=== PATIENT | female | born 2000 | race Caucasian/White ===

== ENCOUNTER 2025-04-07 21:20 | Emergency (ER) | payer OTHER, SELFPAY ==
[2025-04-07 21:27] VITALS: BP 126/73
[2025-04-07 21:53] LABS: Hematocrit 36.0 % (37.0-47.0); Hemoglobin 12.2 g/dL (12.0-16.0); Mean Corp Hgb Conc. 33.9 g/dL (33.0-37.0); Mean Corpuscular Volume 90.9 fL (81.0-99.0); Nucleated Red Blood Cells % 0 %; Platelet Count 286 10^3/uL (130-400); Red Cell Dist. Width 11.6 % (11.5-14.5)
[2025-04-07 21:58] LABS: HCG, Serum Qualitative Screen Negative
[2025-04-07 22:17] LABS: ALT (SGPT) 30 U/L (0-35); AST (SGOT) 15 U/L (14-36); Albumin 4.4 g/dl (3.5-5.0); Alkaline Phosphatase 76 U/L (38-126); Blood Urea Nitrogen 16 mg/dl (7-17); Calcium 9.9 mg/dl (8.4-10.2); Carbon Dioxide 27 mmol/L (22-30); Chloride 105 mmol/L (98-107); Glucose 103 mg/dl (70-99); Potassium 4.0 mmol/L (3.5-5.1); Sodium 137 mmol/L (135-145); Total Protein 7.0 g/dl (6.3-8.2); eGFR > 60.00
[2025-04-07 22:45] LABS: Urine Character Clear (Clear)
[2025-04-07 22:59] LABS: Urine Squamous Cell 21-25 /LPF (Few)
[2025-04-07 23:01] LABS: Urine Red Blood Cell 0-2 /HPF (0-2); Urine White Cell 0-2 /HPF (0-5)
--- NOTE | 2025-04-08 01:29 | ED.GENMED ---
History of Present Illness
General
Chief Complaint: Abdominal Pain
Source: patient
Time Seen by Provider: 04/08/25 01:18
History of Present Illness
History of Present Illness:
25-year-old female presents to the emergency room complaining of right lower abdominal/pelvic pain. Patient has been having this discomfort intermittently for the past couple weeks. Today the pain started and has been constant. Previously the
pain seemed to be related to lifting heavier objects. She would lift something have pain which would last for the remainder of the day but when she wakes up the next morning the pain will be gone. Today the pain started without any provocation.
It exists in her right pelvic region and extends down to her groin. She denies any palpable bulges or hernias. She denies any vomiting though she did feel bit nauseous earlier today. She does not believe there is any chance she is . She
denies any abnormal vaginal discharge. She did have some constipation earlier today but was ultimately able to have a bowel movement. No previous abdominal surgeries. Last menstrual period was 2 weeks ago was normal.
Past History
Past History
ED Past Medical History: Psychiatric (Previous suicide attempt by overdose)
ED Past Surgical History: Tonsilectomy and Other (Myringotomy tubes as child)
Social History
Tobacco: Smoker
Alcohol: None
Drug: None
Personal: Single
Living: with roommate
Employment: Employed
Family History
Family History: Other (Noncontributory)
Phy Exam
Physical Exam
Physical Exam:
General: Awake, Alert, Oriented X3. No acute distress.
Vitals: unremarkable
Head: Atraumatic
Eyes: Pupils equal, EOMI
Throat: Airway intact, no exudates
Neck: Trachea midline
Lungs: Clear and equal b/l
Heart: Regular rate, no murmurs
Abd: Soft, Nontender, no palpable hernia, no pulsatile mass
Rectal:
Neuro: Nonfocal
Skin: Warm, dry, no rash
Extremities: pulses equal b/l, no edema
Course
Orders/Labs/Results
Orders:
Orders
04/07/25 21:31
Test Result ONCE
04/07/25 21:37
Beta Hcg Serum Qualitative Screen [HCG, Serum Qualitative Screen] Urgent
CMP [Comprehensive Metabolic Panel] Urgent
Complete Blood Count/With Diff Urgent
04/07/25 22:35
Urinalysis Reflex To Culture Urgent
Date Specimen was Collected: 04/07/25
Time Specimen was Collected: 21:31
Urine Microscopic Reflex Cult Urgent
04/08/25 01:28
US Pelvis Only (non-obstetric) Urgent
Reason For Exam: r pelvic pain
04/08/25 01:31
0.9% Sodium Chloride 500 ml [Nss] 500 ml IV BOLUS
Ketorolac [Toradol] 15 mg IV NOW STA
Abnormal Lab Results
04/07/25 04/07/25
21:37 22:35
WBC 11.1 H 10^3/uL
(4.8-10.8)
RBC 3.96 L 10^6/uL
(4.20-5.40)
Hct 36.0 L %
(37.0-47.0)
MPV 10.6 H fL
(7.4-10.4)
Absolute Neuts (auto) 7.2 H 10^3/uL
(1.4-6.5)
Absolute Monos (auto) 0.7 H 10^3/uL
(0.1-0.6)
Glucose 103 H mg/dl
(70-99)
Ur Occult Blood Reflex 2+ A
(Negative)
Urine Bacteria (Reflex) Few A
(Negative)
04/07/25 21:37
04/07/25 21:37
Vital Signs
Initial and Last Documented VS:
Initial Vital Signs
Temp Pulse Resp BP Pulse Ox
97.7 F 78 18 126/73 98
04/07/25 21:27 04/07/25 21:27 04/07/25 21:27 04/07/25 21:27 04/07/25 21:27
Last Documented Vital Signs
Temp Pulse Resp BP Pulse Ox
97.7 F 51 19 126/73 100
04/07/25 21:27 04/08/25 04:15 04/08/25 04:15 04/07/25 21:27 04/08/25 04:15
MDM/Problems Addressed
Differential Diagnosis Includes:
Hernia, muscle strain, ovarian cyst
MDM/Problems Addressed:
Patient presents with abdominal pain over the right lower abdomen. Exam is not suggestive of appendicitis. No hernia detected. Ultrasound obtained which shows sided complex cyst of 1.9 cm. There is some free fluid. Suspect ruptured ovarian
cyst. 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 NSAIDs.
*Pulse Oximetry
SaO2: 98
Oxygen Mode of Delivery: Room air
Patient hypoxic: no
*Critical Care Note
Total Time (30-74mins, 75-104mins- exclusive of procedures): Not Applicable
ED Attending Note
-
Portions of this chart may have been created with voice recognition software.� Occasional wrong word or��sound alike� substitutions may have occurred due to the inherent limitations of voice recognition software.
Discharge Plan
Departure
Patient Disposition: Home (Routine Discharge)
Date of Disposition: 04/08/25
Time of Disposition: 06:25
Patient with high blood pressure during this ER visit?: No
Condition: Good
Discharge Problem:
Abdominal pain, Rupture of cyst of right ovary
Instructions: Ovarian cyst - ED (DC), Abdominal Pain
Prescriptions:
New
ibuprofen 600 mg tablet
600 mg PO Q6H PRN (Reason: Pain) Qty: 30 0RF
No Action
amoxicillin [Amoxil] 875 MG tablet
875 mg PO BID Qty: 20 0RF
ibuprofen 600 MG tablet
600 mg PO QIDPRN PRN (Reason: moderate pain/cramps) Qty: 30 0RF
cyclobenzaprine 10 MG tablet
10 mg PO TIDPRN PRN (Reason: spasm) Qty: 12 0RF
prednisone 20 MG tablet
20 mg PO BID Qty: 8 0RF
oseltamivir [Tamiflu] 75 MG capsule
75 mg PO BID Qty: 9 0RF
Referrals:
Netta Skinner DO [Family Provider, Family Practice]
Activity Restrictions/Additional Instructions:
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
Interventions
Interventions:
*Risk Screen - Suicide Last Done: 04/07/25 21:27
*General Assessment Last Done: 04/08/25 02:19
*Neglect/Abuse Screening Last Done: 04/07/25 21:27
*ED- Fall Risk Assessment Last Done: 04/08/25 02:19
*ED COVID-19 Vaccine History Last Done: 04/08/25 02:19
*Nursing Disposition Last Done: 04/08/25 06:34
NO-Sgxkie-Gfjhbxmiwi Assessment Last Done: 04/08/25 02:05
Discharge Date and Time
Discharge Date/Time: 04/08/25 06:34
Print Language: ALBAN[place]
[2025-04-08] MEDS: TORADOL 15 MG IV (02:14)
[2025-04-08] MEDS: NSS 500 IV (02:15)
[2025-04-08 02:20] VITALS: BMI 22.3
== END 2025-04-08 06:34 | disposition home or self-care (01) ==
LOC: EMR 21:20
PROVIDERS: Emergency Medicine; EMERGENCY PHYSICIAN Emergency Medicine; FAMILY PHYSICIAN Family Medicine
DX: R10.2 Pelvic and perineal pain (principal); N83.201 Unspecified ovarian cyst, right side; F17.200 Nicotine dependence, unspecified, uncomplicated; M35.00 Sjogren syndrome, unspecified; Z91.51 Personal history of suicidal behavior
CPT/HCPCS: 99284; 96374; 96361; 76856; 80053; 81003; 81015; 84703; 85025